=== PATIENT | male | born 1960 | race Caucasian/White ===

== ENCOUNTER 2018-01-15 10:19 | Emergency (ER) | payer MEDICARE, MEDICAID ==
[~2018-01-15] VITALS: Ht 157.5 cm; Wt 68.0 kg
[~2018-01-15 10:19] MED LIST: DORZO2%O; TIMO0.255 OU; TRAM50 PO; TYLE3 PO; XALA0.00 OP
[2018-01-15 10:22] VITALS: BP 219/104; PULSE 66; RESP 16; TEMP 97.1; O2SAT 96
[2018-01-15 11:47] VITALS: BP 198/99; PULSE 67; RESP 17; O2SAT 98
[2018-01-15] MEDS ORDERED: [UNRECOGNIZED DRUG - OTHER] (11:52)
[2018-01-15] MEDS ORDERED: CLON.5 PO (11:52)
[2018-01-15] MEDS ORDERED: HYDR-3583 PO (11:52)
--- NOTE | 2018-01-15 11:52 | PD ---
HPI Chief Complaint: Flank/Kidney Pain Time Seen by Provider: 11:42 Travel History International Travel<30 days: No Contact w/Intl Traveler<30days: No Traveled to known affect area: No History of Present Illness HPI Patient is a 57-year-old male with a history of thoracic degenerative disc disease presents emergency department for evaluation of lower back pain which onset yesterday. Patient states he has not had any dysuria or problems pain, denies any blood in the urine, denies any saddle anesthesia. States the pain is severe, low back and on the right side, better when he is lying on his side, worsened when he bares weight PFSH Past Medical History Diminished Hearing: No Musculoskeletal: Yes (CBP) Tetanus Vaccination: > 5 Years Influenza Vaccination: Yes Past Surgical History Eye Surgery: Yes Social History Alcohol Use: Yes (SOC) Tobacco Use: No Substance Use: No Allergies-Medications (Allergen,Severity, Reaction): Coded Allergies: brompheniramine (Unverified Allergy, Severe, TONGUE SWELLING, 01/15/18) phenylpropanolamine (Unverified Allergy, Severe, TONGUE SWELLING, 01/15/18) Reported Meds & Prescriptions Reported Meds & Active Scripts Active Oxycodone-Acetaminophen 10-325 mg Tab 1 Tab PO Q6H PRN Do not take with any other tylenol/acetaminophen product. Prednisone 20 Mg Tab 60 Mg PO DAILY 5 Days Reported Timolol Opth Drops 0.5 % Soln 1 Drop EACH EYE BID Latanoprost Opth Drops (Latanoprost) 0.005% Drops 1 Drop EACH EYE HS Refrigerate until opened. Dorzolamide Opth Drops (Dorzolamide HCl) 2% Soln 1 Drop EACH EYE TID Klonopin (Clonazepam) 0.5 Mg Tab 0.5 Mg PO BID [Tyzenadine] Hydrocodone-Acetaminophen 10-325 mg Tab 1 Tab PO Q6H PRN Review of Systems Except as stated in HPI: all other systems reviewed are Neg Physical Exam Narrative GENERAL: Well-nourished, well-developed patient. SKIN: Focused skin assessment warm/dry. HEAD: Normocephalic. EYES: No scleral icterus. No injection or drainage. NECK: Supple, trachea midline. No JVD or lymphadenopathy. CARDIOVASCULAR: Regular rate and rhythm without murmurs, gallops, or rubs. RESPIRATORY: Breath sounds equal bilaterally. No accessory muscle use. GASTROINTESTINAL: Abdomen soft, non-tender, nondistended. MUSCULOSKELETAL: No cyanosis, or edema. Minimal midline low spine tenderness but really his pain is more isolated to the right flank and there is a palpable spasm which is mild. No midline T or C-spine tenderness. Pelvis stable, no step-off. BACK: Nontender without obvious deformity. No CVA tenderness. Data Data Last Documented VS Vital Signs Date Time Temp Pulse Resp B/P (MAP) Pulse Ox O2 Delivery O2 Flow Rate FiO2 01/15/18 14:36 72 16 188/91 (123) 99 01/15/18 11:47 Room Air 01/15/18 10:22 97.1 Orders Orders Complete Blood Count With Diff (01/15/18 11:02) Comprehensive Metabolic Panel (01/15/18 11:02) Urinalysis - C+S If Indicated (01/15/18 11:02) Lipase (01/15/18 11:02) Ct Lumb Spine W/O Contrast (01/15/18 ) Ct Abd/Pel W/O Iv Contrast (01/15/18 ) Ketorolac Inj (Toradol Inj) (01/15/18 12:00) Morphine Inj (Morphine Inj) (01/15/18 13:15) Orphenadrine Inj (Norflex Inj) (01/15/18 13:15) Ed Discharge Order (01/15/18 14:23) Labs Laboratory Tests Test 01/15/18 11:26 White Blood Count 8.2 TH/MM3 Red Blood Count 4.68 MIL/MM3 Hemoglobin 14.6 GM/DL Hematocrit 42.6 % Mean Corpuscular Volume 91.0 FL Mean Corpuscular Hemoglobin 31.1 PG Mean Corpuscular Hemoglobin Concent 34.2 % Red Cell Distribution Width 13.4 % Platelet Count 217 TH/MM3 Mean Platelet Volume 8.8 FL Neutrophils (%) (Auto) 55.0 % Lymphocytes (%) (Auto) 33.9 % Monocytes (%) (Auto) 7.2 % Eosinophils (%) (Auto) 3.3 % Basophils (%) (Auto) 0.6 % Neutrophils # (Auto) 4.5 TH/MM3 Lymphocytes # (Auto) 2.8 TH/MM3 Monocytes # (Auto) 0.6 TH/MM3 Eosinophils # (Auto) 0.3 TH/MM3 Basophils # (Auto) 0.0 TH/MM3 CBC Comment DIFF FINAL Differential Comment Urine Color LIGHT-YELLOW Urine Turbidity CLEAR Urine pH 5.0 Urine Specific [place] 1.005 Urine Protein NEG mg/dL Urine Glucose (UA) NEG mg/dL Urine Ketones NEG mg/dL Urine Occult Blood NEG Urine Nitrite NEG Urine Bilirubin NEG Urine Urobilinogen LESS THAN 2.0 MG/DL Urine Leukocyte Esterase NEG Urine WBC LESS THAN 1 /hpf Urine Mucus FEW /lpf Microscopic Urinalysis Comment CULT NOT INDICATED Blood Urea Nitrogen 10 MG/DL Creatinine 1.06 MG/DL Random Glucose 88 MG/DL Total Protein 8.9 GM/DL Albumin 4.5 GM/DL Calcium Level 9.1 MG/DL Alkaline Phosphatase 71 U/L Aspartate Amino Transf (AST/SGOT) 22 U/L Alanine Aminotransferase (ALT/SGPT) 20 U/L Total Bilirubin 0.4 MG/DL Sodium Level 138 MEQ/L Potassium Level 4.1 MEQ/L Chloride Level 105 MEQ/L Carbon Dioxide Level 25.1 MEQ/L Anion Gap 8 MEQ/L Estimat Glomerular Filtration Rate 72 ML/MIN Lipase 90 U/L [facility] Medical Decision Making Medical Screen Exam Complete: Yes Emergency Medical Condition: Yes Differential Diagnosis Strain, sprain, fracture, cauda equina is excluded clinically Narrative Course Patient room to the emergency department, pain medicine given, he was able to ambulate afterwards, CT scan of his lumbar spine shows no acute bony abnormality : Last [address] 01/15/18 Signed Impressions: Service Date/Time: December 12:35 - CONCLUSION: Mild disc bulges at several levels. No acute bony findings. Dewey Church MD Abdomen/Pelvis CT 01/15/18 0000 Signed Impressions: Service Date/Time: December 12:35 - CONCLUSION: 1. No evidence of hydronephrosis. 2. Tiny 2 mm nonobstructing stone upper pole left kidney. Buster Jameson MD This was discussed with the patient I recommended that he follow-up with his pain management doctor and his surgeon as scheduled. Discussed return to ED criteria. His pain is more in control now. Diagnosis Primary Impression: Low back pain Med/Other Pt SpecificInfo: Prescription(s) given Scripts Oxycodone-Acetaminophen (Oxycodone-Acetaminophen) 10-325 mg Tab 1 TAB PO Q6H Y for PAIN, #10 TAB 0 Refills Do not take with any other tylenol/acetaminophen product. Prov: Sterling Carrasco MD 01/15/18 Prednisone (Prednisone) 20 Mg Tab 60 MG PO DAILY for 5 Days, #15 TAB 0 Refills Prov: Sterling Carrasco MD 01/15/18 Disposition: 01 DISCHARGE HOME Condition: Stable Sterling Carrasco MD Jan 15, 2018 11:52
[2018-01-15] MEDS ORDERED: DORZ2SOL EACH EYE (11:59)
[2018-01-15] MEDS ORDERED: TIMO0.5S30 EACH EYE (11:59)
[2018-01-15] MEDS ORDERED: LATA0.002 EACH EYE (11:59)
[2018-01-15] MEDS ORDERED: KETOROLAC TROMETHAMINE 30 MG/ML (IVP) VIAL IV PUSH ONE (12:00)
[2018-01-15 12:05] LABS: AUTOMATED NEUTROPHIL # 4.5 TH/MM3 (1.8-7.7); BASOPHIL % 0.6 % (0.0-2.0); EOSINOPHIL # 0.3 TH/MM3 (0-0.4); EOSINOPHIL % 3.3 % (0.0-4.0); HEMATOCRIT 42.6 % (39.0-51.0); HEMOGLOBIN 14.6 GM/DL (13.0-17.0); LYMPH % 33.9 % (9.0-44.0); LYMPHOCYTE # 2.8 TH/MM3 (1.0-4.8); MEAN CORPUSCULAR HEMOGLOBIN 31.1 PG (27.0-34.0); MEAN CORPUSCULAR HGB CONC 34.2 % (32.0-36.0); MEAN PLATELET VOLUME 8.8 FL (7.0-11.0); MONO % 7.2 % (0.0-8.0); MONOCYTE # 0.6 TH/MM3 (0-0.9); PLATELET COUNT 217 TH/MM3 (150-450); RED BLOOD COUNT 4.68 MIL/MM3 (4.50-5.90); RED CELL DISTRIBUTION WIDTH 13.4 % (11.6-17.2); WHITE BLOOD COUNT 8.2 TH/MM3 (4.0-11.0)
[2018-01-15 12:08] LABS: BILIRUBIN, URINE NEG (NEG); BLOOD, URINE NEG (NEG); GLUCOSE,URINE NEG (NEG); KETONE, URINE NEG (NEG); MUCUS URINE FEW /lpf (OCC); NITRITE,URINE NEG (NEG); URINE COLOR LIGHT-YELLOW (YELLW/STRAW); URINE LEUKOCYTE ESTERASE NEG (NEG)
[2018-01-15 12:21] LABS: ALBUMIN 4.5 GM/DL (3.4-5.0); ALT (GPT) 20 U/L (12-78); AST (GOT) 22 U/L (15-37); BICARBONATE 25.1 MEQ/L (21.0-32.0); BLOOD UREA NITROGEN 10 MG/DL (7-18); CALCIUM 9.1 MG/DL (8.5-10.1); CHLORIDE 105 MEQ/L (98-107); CREATININE 1.06 MG/DL (0.60-1.30); GLOMERULAR FILTRATION RATE 72 ML/MIN (>89); GLUCOSE,RANDOM 88 MG/DL (74-106); SODIUM (NA) 138 MEQ/L (136-145)
[2018-01-15 12:23] LABS: ALKALINE PHOSPHATASE 71 U/L (45-117); TOTAL BILIRUBIN ADULT 0.4 MG/DL (0.2-1.0); TOTAL PROTEIN 8.9 GM/DL (6.4-8.2)
--- NOTE | 2018-01-15 13:03 | RADRPT ---
EXAM DATE/TIME: 01/15/2018 12:35 [facility] COMPARISON: No previous studies available for comparison. INDICATIONS : Right flank pain. ORAL CONTRAST: No oral contrast ingested. RADIATION DOSE: 6.98 CTDIvol (mGy) MEDICAL HISTORY : None SURGICAL HISTORY : None. ENCOUNTER: Initial ACUITY: 3 days PAIN SCALE: 7/10 LOCATION: Right flank TECHNIQUE: Volumetric scanning of the abdomen and pelvis was performed. Using automated exposure control and ad justment of the mA and/or kV according to patient size, radiation dose was kept as low as reasonably achievable to obtain optimal diagnostic quality images. DICOM format image data is available electro nically for review and comparison. The lack of IV contrast limits the diagnosis of certain organ pat hology. FINDINGS: LOWER LUNGS: The visualized lower lungs are clear. LIVER: Homogeneous density without lesion. There is no dilation of the biliary tree. No calcified gallston es. SPLEEN: Normal size without lesion. PANCREAS: Within normal limits. KIDNEYS: There is no evidence of hydronephrosis. There is a tiny 2 mm stone upper pole left kidney not causing obstruction. No definite calcified right renal stones are seen. The ureters are nondilated. ADRENAL GLANDS: Within normal limits. VASCULAR: There is no aortic aneurysm. BOWEL/MESENTERY: The stomach, small bowel, and colon demonstrate no acute abnormality. There is no free intraperitone al air or fluid. No inflammatory changes. The appendix is unremarkable. ABDOMINAL WALL: Within normal limits. RETROPERITONEUM: There is no lymphadenopathy. BLADDER: No wall thickening or mass. REPRODUCTIVE: Within normal limits. INGUINAL: There is no lymphadenopathy or hernia. MUSCULOSKELETAL: Within normal limits for patient age. CONCLUSION: 1. No evidence of hydronephrosis. 2. Tiny 2 mm nonobstructing stone upper pole left kidney. Buster Jameson MD on January 15, 2018 at 12:59 Board Certified Radiologist. This report was verified electronically.
[2018-01-15] MEDS ORDERED: ORPHENADRINE INJ 60 MG/2 ML AMP IM ONE (13:15)
[2018-01-15] MEDS ORDERED: MORPHINE SULFATE 2 MG/ML INJ IV PUSH ONE (13:15)
--- NOTE | 2018-01-15 13:44 | RADRPT ---
EXAM DATE/TIME: 01/15/2018 12:35 [facility] COMPARISON: CT ABDOMEN & PELVIS W/O CONTRAST, January 15, 2018, 12:35. INDICATIONS : Right flank pain. RADIATION DOSE: ; Reconstructed from previous dataset, no dose MEDICAL HISTORY : None SURGICAL HISTORY : None. ENCOUNTER: Initial ACUITY: 1 day PAIN SCALE: 7/10 LOCATION: Right flank TECHNIQUE: Volumetric scanning of the lumbar spine was performed. Multiplanar reconstructions in the sagittal, coronal and oblique axial planes were performed. Using automated exposure control and adjustment of the mA and/or kV according to patient size, radiation dose was kept as low as reasonably achievable t o obtain optimal diagnostic quality images. DICOM format image data is available electronically for review and comparison. FINDINGS: VERTEBRAE: Normal vertebral body height. ALIGNMENT: No evidence of subluxation. T12-L1: The thecal sac has a normal diameter. No evidence of disc bulge or protrusion. The neural foramina are patent bilaterally. L1-L2: The thecal sac has a normal diameter. No evidence of disc bulge or protrusion. The neural foramina are patent bilaterally. L2-L3: Slight annular disc bulge. No significant canal compromise or foraminal stenosis. L3-L4: Slight annular disc bulge. No significant canal or foraminal compromise. L4-L5: Slight annular disc bulge. The lungs suggest significant canal or foraminal compromise. L5-S1: The thecal sac has a normal diameter. No evidence of disc bulge or protrusion. The neural foramina are patent bilaterally. CONCLUSION: Mild disc bulges at several levels. No acute bony findings. Dewey Church MD on January 15, 2018 at 13:35 Board Certified Radiologist. This report was verified electronically.
[2018-01-15] MEDS ORDERED: OXYC1TAB36 PO (14:23)
[2018-01-15] MEDS ORDERED: PRED20 PO (14:23)
[2018-01-15 14:36] VITALS: BP 188/91
== END 2018-01-15 14:37 | disposition home or self-care (01) ==
LOC: NEPD 10:19
DX: M54.5 Low back pain (principal)
CPT/HCPCS: 72131; 74176; 80053; 81001; 83690; 85025; 96372; 96374; 96375; 99284; J1885; J2270; J2360

== ENCOUNTER → 2018-02-19 | Outpatient (CLI) | payer MEDICAID, MEDICARE ==
[~2018-02-19] MED LIST changes: +CLON.5 PO; +DORZ2SOL EACH EYE; -DORZO2%O; +HYDR-3583 PO; +LATA0.002 EACH EYE; +OXYC1TAB36 PO; +PRED20 PO; -TIMO0.255 OU; +TIMO0.5S30 EACH EYE; -TRAM50 PO; -TYLE3 PO; -XALA0.00 OP; +[UNRECOGNIZED DRUG - OTHER]
[2018-02-19 15:07] LABS: AUTOMATED NEUTROPHIL # 6.3 TH/MM3 (1.8-7.7); BASOPHIL % 0.4 % (0.0-2.0); EOSINOPHIL # 0.1 TH/MM3 (0-0.4); EOSINOPHIL % 1.6 % (0.0-4.0); HEMATOCRIT 38.3 % (39.0-51.0); HEMOGLOBIN 13.1 GM/DL (13.0-17.0); LYMPH % 26.4 % (9.0-44.0); LYMPHOCYTE # 2.5 TH/MM3 (1.0-4.8); MEAN CELL VOLUME 90.2 FL (80.0-100.0); MEAN CORPUSCULAR HEMOGLOBIN 30.9 PG (27.0-34.0); MEAN CORPUSCULAR HGB CONC 34.3 % (32.0-36.0); MEAN PLATELET VOLUME 8.3 FL (7.0-11.0); MONO % 5.9 % (0.0-8.0); MONOCYTE # 0.6 TH/MM3 (0-0.9); NEUT % 65.7 % (16.0-70.0); PLATELET COUNT 255 TH/MM3 (150-450); RED BLOOD COUNT 4.25 MIL/MM3 (4.50-5.90); RED CELL DISTRIBUTION WIDTH 13.5 % (11.6-17.2); WHITE BLOOD COUNT 9.5 TH/MM3 (4.0-11.0)
[2018-02-19 15:22] LABS: ALT (GPT) 18 U/L (12-78); AST (GOT) 18 U/L (15-37); BICARBONATE 27.1 MEQ/L (21.0-32.0); BLOOD UREA NITROGEN 13 MG/DL (7-18); CALCIUM 8.7 MG/DL (8.5-10.1); CHLORIDE 106 MEQ/L (98-107); CREATININE 1.06 MG/DL (0.60-1.30); GLOMERULAR FILTRATION RATE 72 ML/MIN (>89); GLUCOSE,FASTING 81 MG/DL (74-99); SODIUM (NA) 140 MEQ/L (136-145)
[2018-02-19 15:32] LABS: ALKALINE PHOSPHATASE 64 U/L (45-117); FREE T4 0.84 NG/DL (0.76-1.46); TOTAL BILIRUBIN ADULT 0.3 MG/DL (0.2-1.0); TOTAL PROTEIN 8.1 GM/DL (6.4-8.2)
[2018-02-19 19:27] LABS: HEMOGLOBIN A1C 5.4 % (4.3-6.0)
== END ==
LOC: CLAB 14:04
PROVIDERS: ATTEND Psychiatry & Neurology Neurology
DX: F41.8 Other specified anxiety disorders (principal); E07.9 Disorder of thyroid, unspecified; E11.21 Type 2 diabetes mellitus with diabetic nephropathy; R68.89 Other general symptoms and signs; Z01.84 Encounter for antibody response examination
CPT/HCPCS: 36415; 80053; 83036; 84439; 84443; 84480; 85025; 86200